=== PATIENT | female | born 1950 | race Two or more races ===

== ENCOUNTER 2023-05-04 15:52 | Outpatient (REF) | payer MEDICARE, SELFPAY ==
--- NOTE | ~2023-05-04 | XR_ITS ---
EXAMINATION: XR KNEE, RIGHT CLINICAL INFORMATION: Osteoarthritis. COMPARISON: None available. TECHNIQUE: AP and lateral views of the right knee. FINDINGS: There is bony demineralization. No fracture or dislocation is seen. There is no unusual degenerative change. There is a small to moderate joint effusion. No focal soft tissue swelling, gas or foreign body is seen. XR/XR knee LT 2V IMPRESSION: 1. No right knee fracture, dislocation or unusual degenerative change is seen. 2. There is a small to moderate right knee effusion. EXAMINATION: XR KNEE, LEFT CLINICAL INFORMATION: Osteoarthritis. COMPARISON: None available. TECHNIQUE: AP and lateral views of the left knee. FINDINGS: There is bony demineralization. No fracture or dislocation is seen. There is no unusual degenerative change. There is a moderate joint effusion. No focal soft tissue swelling, gas or foreign body is seen. IMPRESSION: 1. No left knee fracture, dislocation or unusual degenerative change is seen. 2. There is a moderate left knee effusion.
--- NOTE | ~2023-05-04 | XR_ITS ---
EXAMINATION: XR KNEE, RIGHT CLINICAL INFORMATION: Osteoarthritis. COMPARISON: None available. TECHNIQUE: AP and lateral views of the right knee. FINDINGS: There is bony demineralization. No fracture or dislocation is seen. There is no unusual degenerative change. There is a small to moderate joint effusion. No focal soft tissue swelling, gas or foreign body is seen. XR/XR knee RT 2V IMPRESSION: 1. No right knee fracture, dislocation or unusual degenerative change is seen. 2. There is a small to moderate right knee effusion. EXAMINATION: XR KNEE, LEFT CLINICAL INFORMATION: Osteoarthritis. COMPARISON: None available. TECHNIQUE: AP and lateral views of the left knee. FINDINGS: There is bony demineralization. No fracture or dislocation is seen. There is no unusual degenerative change. There is a moderate joint effusion. No focal soft tissue swelling, gas or foreign body is seen. IMPRESSION: 1. No left knee fracture, dislocation or unusual degenerative change is seen. 2. There is a moderate left knee effusion.
== END 2023-05-04 15:53 | disposition home or self-care (01) ==
LOC: HO.XRAY 15:52
PROVIDERS: PCP Internal Medicine; Visit Provider Psychiatry & Neurology Neurology
DX: M17.0 Bilateral primary osteoarthritis of knee (principal)
CPT/HCPCS: 73560